=== PATIENT | female | born 1975 | race Caucasian/White ===

== ENCOUNTER 2016-10-10 06:33 | Inpatient (IN) | payer OTHER ==
[2016-10-10] VITALS (8 sets, daily range): BP systolic 97–127; BP diastolic 55–71
[~2016-10-10] VITALS: Ht 167.6 cm; Wt 121.8 kg
[~2016-10-10 06:33] MED LIST: COLACE100 MG PO; ENDOCET 5-3251 EACH PO; GLUCOPHAGE1000 MG PO; HUMALOG100 UNIT/1 SC; HUMULIN N100 UNITS/ SC; LEVO-T175 MCG PO; LIDODERM 5% P1 PATCH TD; LO-DOSE ASPIRIN81 M2 PO; Motrin PO; NAPROXEN500 MG PO; PRENATAL TABLE1 EAC3 PO; RANITIDINE HCL300 MG PO
[2016-10-10] MEDS ORDERED: ENDOCET 5-3251 EACH PO (10:02)
[2016-10-10] MEDS ORDERED: IBUPROFEN800 MG PO (10:02)
[2016-10-10 10:35] LABS: POINT-OF-CARE METER ID UU13113675
[2016-10-10 11:59] LABS: POINT-OF-CARE METER ID UU13113692; POINT-OF-CARE USER ID RADDNY
[2016-10-10 13:14] LABS: POINT-OF-CARE METER ID UU13113692; POINT-OF-CARE USER ID RADDNY
[2016-10-10 18:04] LABS: POINT-OF-CARE METER ID UU13113692; POINT-OF-CARE USER ID RADDNY
[2016-10-11 01:39] VITALS: BP 93/55
[2016-10-11 06:43] LABS: BASOPHIL COUNT 0.1 K/uL (0-0.1); EOSINOPHIL (%) 1.2 % (0-5); EOSINOPHIL COUNT 0.1 K/uL (0-0.3); HEMATOCRIT 26.2 % (36.0-46.0); IMMATURE GRANULOCYTE (%) 0.7 % (0.0-0.7); IMMATURE GRANULOCYTE COUNT 0.1 K/uL; INSTRUMENT ABS NEUTROPHIL CT 7.8 K/uL; LYMPHOCYTE COUNT 3.3 K/uL (1.0-2.8); MCHC 33.2 G/DL (30.0-36.0); MCV 81.4 FL (83-99); MEAN PLAT.VOLUME 11.8 uM^3 (9.5-12.4); MONOCYTE (%) 6.4 % (3-12); MONOCYTE COUNT 0.8 K/uL (0-0.8); NEUTROPHIL (%) 64.3 % (45-76); NEUTROPHIL COUNT 7.8 K/uL (1.8-6.4); PLATELET COUNT 294 K/uL (156-360); RBC DIS.WIDTH-CV 15.6 % (11.8-14.6); WHITE BLOOD COUNT 12.1 K/uL (4.1-10.2)
[2016-10-11 06:51] LABS: RED BLOOD COUNT 3.22 M/uL (3.80-5.20)
[2016-10-11 07:41] VITALS: BP 113/64
[2016-10-11 11:12] VITALS: BP 126/70
[2016-10-11 15:44] LABS: POINT-OF-CARE METER ID UU13113692
[2016-10-11 15:44] LABS: POINT-OF-CARE METER ID UU13113692; POINT-OF-CARE USER ID PUTRLG40
[2016-10-11 15:44] LABS: POINT-OF-CARE METER ID UU13113692; POINT-OF-CARE USER ID PUTRLG40
[2016-10-11 16:11] VITALS: BP 114/53
[2016-10-11 18:24] LABS: POINT-OF-CARE METER ID UU13113692; POINT-OF-CARE USER ID PUTRLG40
[2016-10-11 19:00] VITALS: BP 119/65
[2016-10-11 23:00] VITALS: BP 113/59
[2016-10-12 03:00] VITALS: BP 120/64
[2016-10-12 08:12] LABS: POINT-OF-CARE METER ID UU13113692
[2016-10-12 12:44] LABS: POINT-OF-CARE METER ID UU13113692
[2016-10-12 12:44] LABS: POINT-OF-CARE METER ID UU13113692
== END 2016-10-12 14:18 | disposition home or self-care (01) | DRG 765 ==
LOC: 2WEST 06:33 → 2SOUTH 08:08 → 2WEST 10-12 14:18
PROVIDERS: Obstetrics & Gynecology
DX: O34.211 Maternal care for low transverse scar from previous cesarean delivery (principal); O24.12 Pre-existing type 2 diabetes mellitus, in childbirth; E11.9 Type 2 diabetes mellitus without complications; O99.02 Anemia complicating childbirth; D62 Acute posthemorrhagic anemia; O34.212 Maternal care for vertical scar from previous cesarean delivery; O99.284 Endocrine, nutritional and metabolic diseases complicating childbirth; E03.9 Hypothyroidism, unspecified; O99.62 Diseases of the digestive system complicating childbirth; K21.9 Gastro-esophageal reflux disease without esophagitis; O99.214 Obesity complicating childbirth; E66.9 Obesity, unspecified; Z68.30 Body mass index [BMI] 30.0-30.9, adult; Z79.4 Long term (current) use of insulin; Z79.84 Long term (current) use of oral hypoglycemic drugs; Z3A.37 37 weeks gestation of pregnancy; Z30.2 Encounter for sterilization; Z37.0 Single live birth
CPT/HCPCS: 36415; 80048; 82948; 85025; 86900; 86901; 88302; 93005; J0690; J1170; J1200; J2274; J2405; J3010; J7120